=== PATIENT | female | born 1965 | race Caucasian/White ===

== ENCOUNTER 2020-11-17 10:02 | Outpatient (CLI) | payer SELFPAY ==
--- NOTE | 2020-11-17 10:17 | USCV_ITS ---
Aaron Pascal Age: 54 Gender: F : 1965 Exam Date: 11/17/2020 10:10 Ordering Phys: Ayaz Hernandez MD Technologist: Fly Smith Exam Location: [facility] [place]_ Indication: hypertension Aortic Velocity @ SMA (cm/s) 189 RIGHT KIDNEY LEFT KIDNEY Velocity (cm/s) Velocity (cm/s) Sys/Magana Sys/Magana Resistive Index Resistive Index / Proximal Renal Artery 116.4 / 32.0 0.73 / Mid Renal Artery 108.1 / 34.0 0.69 / Distal Renal Artery 111.2 / 38.7 0.65 / Hilar 108.7 / 32.5 0.70 / Upper Pole 45.2 / 14.4 0.68 / Mid Pole 42.3 / 9.9 0.77 / Lower Pole 30.6 / 9.5 0.69 Renal Aortic Ratio 0.62 Accleration Index (cm/sec2) Hilar 1563.0 0 Upper Pole 789.00 Mid Pole 825.00 Lower Pole 618.00 Kidney Length (mm) 109.6 FINDINGS Right kidney cannot be measured because not well visualized as described. Left kidney 10.9 x 5.0 x 4.2cm Left renal cortex 1.7cm CONCLUSIONS Right kidney not well seen and doppler could not be performed Normal color flow Doppler, peak systolic velocities, Renal/Aortic peak systolic velocity ratio and resistive indices noted in the Left main, segmental and interlobar renal arteries. Jose Arellano MD (Electronically Signed) Final Date: 17 November 2020 16:42 Amended: 18 November 2020 10:22 C
== END 2020-11-17 10:03 | disposition home or self-care (01) ==
LOC: RAD 10:09
PROVIDERS: Visit Provider Internal Medicine
DX: I70.1 Atherosclerosis of renal artery (principal); I10 Essential (primary) hypertension
CPT/HCPCS: 93975

== ENCOUNTER → 2021-04-26 10:51 | Outpatient (BNVA) | payer SELFPAY | PROVIDERS: PCP Physician Assistant Medical; Referring Provider Radiology Diagnostic Radiology; Visit Provider Orthopaedic Surgery | DX: M25.551 Pain in right hip (principal) | CPT/HCPCS: 73502 ==

== ENCOUNTER → 2021-09-01 13:46 | Outpatient (BNVA) | payer SELFPAY | PROVIDERS: PCP Physician Assistant Medical; Visit Provider Obstetrics & Gynecology | DX: N39.3 Stress incontinence (female) (male) (principal); N81.10 Cystocele, unspecified; N81.6 Rectocele | CPT/HCPCS: 87635 ==

== ENCOUNTER 2021-09-06 09:13 | Observation (INO) | payer MEDICAID, SELFPAY ==
[2021-09-05 13:33] VITALS: BMI 33.7
[2021-09-06] VITALS (17 sets, daily range): BP systolic 107–138; BP diastolic 66–81; PULSE 57–78; RESP 13–22; TEMP 36.4–36.8; O2SAT 86–100
--- NOTE | 2021-09-06 06:30 | PC.NURSE ---
Patient unable to void for UA. Order changed to cath as source for OR. Nurse notified.
[2021-09-06] MEDS: gabapentin 300 mg Capsule PO (06:42)
[2021-09-06] MEDS: ketorolac 30 mg/mL INJ IVP ×3 (06:42→20:46)
[2021-09-06] MEDS: phenazopyridine 100 mg Tablet 200 MG PO (06:42)
[2021-09-06] MEDS: sodium chloride 0.9% 1,000 ML 30 ML IV (06:43)
[2021-09-06] MEDS: CELEcoxib 100 mg Capsule 400 MG PO (06:43)
[2021-09-06] MEDS: acetaminophen 1,000 MG/100 ML PIGGYBACK 400 MG IV (07:00)
--- NOTE | 2021-09-06 07:01 | P.ANESASSM_ITS ---
Pre-Anesthetic Assessment Pre-Anesthetic Assessment: Height/Weight: Height 1.68 m Weight 94.801 kg Temp Pulse Resp BP Pulse Ox 98.2 F 57 L 18 138/77 97 09/06/21 06:26 09/06/21 06:26 09/06/21 06:26 09/06/21 06:26 09/06/21 06:26 Preop Diagnosis: cystocele, rectocele, loss of perineal body, stress incontinence Proposed Procedure: Operation Date: 09/06/21 07:00 Proposed Procedures p Anterior Repair [id number] N81.10 N81.6 N39.3(Not Applicable) - Niocle Hays MD s Posterior Repair(Not Applicable) - Nicole Hays MD s Sling(Not Applicable) - Nicole Hays MD Was Beta Fang taken within 24 hours: Yes Was Clonidine taken within 24 hours: N/A Last intake: Intake Last Liquid Date 09/05/21 Last Liquid Time 21:30 Last Solid Date 09/05/21 Last Solid Time 21:30 Social: Social History: No alcohol and No tobacco Exam: Pre-Anes Outpt Exam: alert, oriented x 3, clear to auscultation bilaterally and regular rate & rhythm Airway: Submandibular: WNL Cervical ROM: WNL MP: 2 Dentition: Full CV/HEM: CV/HEM: Arrythmia Metabolic: Metabolic: Hyperlipidemia and Morbid obesity Anesthetic Plan: ASA status: 3 Anesthesia: General Risk of > 500 ml blood loss (7ml/kg in children): No Meds/Allergies 2 Current Medications: Current Medications Generic Name Dose Route Start Last Admin Trade Name Freq PRN Reason Stop Dose Admin Sodium Chloride 1,000 mls @ 30 ml s/hr 09/06/21 06:30 09/06/21 06:43 Sodium Chloride 0.9% IV 09/07/21 06:29 30 mls/hr .Q24H XIN Administration PFSH Anesthesia PFSH: Medical History Borderline diabetic Carpal tunnel syndrome, bilateral Chronic kidney disease Depression Hypercholesteremia Hypertension Surgical History History of History of total hysterectomy Hx of lumbosacral spine surgery Family History Mother Heart disease Grandmother Breast cancer Paternal Grandfather Cancer Paternal-Prostate Sister Diabetes Family/Other Diabetes Paternal uncle Hyperlipidemia Paternal Uncle Denies family history of CAD (coronary artery disease) Clotting disorder Chronic kidney disease (CKD) Bleeding disorder Hypertension Stroke Social History Smoking and tobacco status: never smoked Alcohol intake: never Data Anesthesia Cardiac Studies: No Data to Display
--- NOTE | 2021-09-06 07:06 | W.PM.OPSUD ---
Surgery/Procedure H&P Update DATE OF PROCEDURE: September 06, 2021 DATE H&P PERFORMED: 09/01/21 H&P UPDATE INFORMATION: I have reviewed H&P completed within last 30 days, I have examined patient prior to procedure and No changes to prior documentation PREOP DIAGNOSIS: cystocele, rectocele, loss of perineal body, stress incontinence PLANNED PROCEDURE: Operation Date: 09/06/21 07:00 Proposed Procedures p Anterior Repair [id number] N81.10 N81.6 N39.3(Not Applicable) - Nicole Hays MD s Posterior Repair(Not Applicable) - Nicole Hays MD s Sling(Not Applicable) - Nicole Hays MD
[2021-09-06 07:22] LABS: Basophils # 0.1 10^3/uL (0.0-0.1); Basophils % 1.7 %; Eosinophils # 0.4 10^3/uL (0.0-0.8); Hematocrit 30.8 % (37.0-47.0); Hemoglobin 9.7 g/dL (11.5-15.3); Lymphocytes # 2.3 10^3/uL (0.8-4.8); Lymphocytes % 36.8 %; Mean Corpuscular HGB Conc 31.5 g/dL (30.0-36.0); Mean Corpuscular Hemoglobin 29.1 pg (28.0-34.0); Mean Corpuscular Volume 92.5 fl (81-99); Mean Platelet Volume 10.1 fL (7.4-10.4); Monocytes # 0.8 10^3/uL (0.2-0.9); Neutrophils # 2.73 10^3/uL (1.8-7.7); Neutrophils % 43.3 %; Nucleated Red Blood Cells % 0 %; Platelet Count 461 10^3/cmm (130-400); Red Blood Count 3.33 10^6/uL (4.1-5.3); Red Cell Distribution Width 13.2 % (12.1-15.1); White Blood Count 6.3 10^3/uL (4.0-10.0)
[2021-09-06 07:36] LABS: Anion Gap 14.3 (5-19); Blood Urea Nitrogen 32 mg/dL (6-20); Calcium 9.2 mg/dL (8.5-10.5); Carbon Dioxide 30 mmol/L (22-29); Chloride 101 mmol/L (98-107); Glomerular Filtration Rate 51.4 mL/min (90-130); Glucose 104 mg/dL (65-115); Osmolality Calculated 299 mOsm/kg (285-295); Potassium 4.3 mmol/L (3.5-5.1); Sodium 141 mmol/L (136-145)
[2021-09-06] MEDS: vasopressin 20 unit/mL INJ 8 UNIT INJECTION (07:59)
--- NOTE | 2021-09-06 08:43 | P.OP_ITS ---
Operative Report Date of procedure: September 06, 2021 Pre-op Diagnosis: cystocele, rectocele, loss of perineal body, stress incontinence Post-op diagnosis: same Post-op Findings: Evidence of prior anterior surgery. Otherwise normal Procedure Done: mid urethral sling placement, perineorrhaphy Implants: mid urethral sling Specimens removed/disposition: none Pathology: none sent Surgeon: Nicole Hays Anesthesia: General Estimated blood loss (mL): 150 IV fluids (mL): 1,100 Urine output (mL): 400 Complications: none, but evidence of prior bladder surgery. Anterior repair aborted due to possible presence of graft. Mucosa reapproximated Findings: grade 2 cystocele, urinary incontinence, loose perineal body Disposition: floor Brief History: The patient presented with complaints of stress incontinence and vaginal pressure. Procedure: The patient was taken to the operating room where general anesthesia was administered and found to be adequate. She was prepped and draped in the normal sterile fashion in the dorsal lithotomy position in Azael stirrups. A treadwell catheter was placed. A weighted speculum was placed into the vagina and an Allis clamp was placed approximately 2 cm below the urethra and another placed approximately 3 cm distal from that. An incision was made between the 2. The tissue was sharply and bluntly dissected along the pubic ramus bilaterally. The sling was placed on the left first by going through the incision and attaching the sling to the obturator foramen membrane . The right side was p erformed in a similar fashion, placing the applicator through the incision and attaching to the obturator foramen membrane. The Treadwell catheter was removed and the cystoscope advanced into the bladder. Pyridium had previously been given and bilateral spill of blue fluid was noted from both ureteral orifices. There was no mesh noted to be in the bladder. 300 ml of sterile saline was placed into the bladder. The sling was tightened until there was no leakage with valsalva. The tag of suture was trimmed. The incision was repaired with 2-0 Vicryl in a running locked fashion. The vaginal cuff was identified and an allis clamp was placed in the midline of the vaginal mucosa, approximately 2 cm anterior to the cuff. A second allis clamp was placed in the midline of the vaginal mucosa, connected to the previous anterior incision. The vaginal mucosa was clamped laterally and I attempted to dissect the cystocle off of the vesicovaginal fascia. The bladder was densely adhered and firm to the touch. The patient denied any previous bladder surgeries, however, the bladder had the appearance of a previous graft or at the very least previous surgery. I was unable to perform the dissection. The incision was closed with 3-0 vicryl, carefully avoiding the bladder with the stitches. Attention was then turned to the perineorrhphy. Allis clamps were placed on the posterior fourchette. A 3 cm wedge of the fourchette was removed. This was repaired in the usual fashion with O-vicryl. Vaginal packing was placed. The patient tolerated the procedure well. Sponge, lap and needle counts were correct times three. She was taken to the recovery room in stable condition.
[2021-09-06] MEDS: acetaminophen 325 mg Tablet 650 MG PO (13:11)
--- NOTE | 2021-09-06 14:18 | ANE.PACU2 ---
Inpatient post-anesthesia follow up: Airway intact: Yes Vital signs: Temperature 97.8 F Pulse Rate 63 Respiratory Rate 17 Blood Pressure 116/68 Pulse Oximetry 98 Oxygen Delivery Me thod Nasal Cannula Oxygen Flow Rate 1 Fraction of Inspir ed Oxygen Hydration adequate: Yes Nausea and vomiting: No Pain level: 3 Mental status: Baseline
--- NOTE | 2021-09-06 16:45 | PC.NURSE ---
This comic book writer assisted pt from bed to chair. Pt tolerated well, but had some decreased ROM in her right hip/leg. Chucks pad that was under pt since surgery had a dinner plate size saturated area of blood on it. Pt also reported having some shortness of breath and every time she takes a deep breath she coughs. Pt reports shes not able to take very deeps breaths because of this. Pt O2 saturation is in the low 90s on room air. When pt was resting she dropped down into the 80s, so pt was placed on 2L nasal cannula and responded well.
--- NOTE | 2021-09-06 17:03 | PC.NURSE ---
Call to Dr. Hays to report pt bleeding and low saturations with shortness of breath. Reported that pt had a dinner plate size area on the chucks pad that was saturated with blood. Dr. Hays responded, The vaginal packing has a water based lubricant on so it dilutes the blood and makes it appear that there is more bleeding than there actually is, and that is probably what happened. Reported that pt has had low O2 sats at 90-92% on room air and that pt is complaining of shortness of breath and pain in her chest when she takes deep breaths. Also deep breaths make her cough. Received orders to have respiratory come and assess the pt.
[2021-09-06] MEDS: HYDROcodone-acetaminophen 5-325 mg Tablet PO (18:32)
[2021-09-06] MEDS: dextrose 5%-lactated ringers 1,000 ML 125 ML IV (18:33)
[2021-09-06] MEDS: HYDROmorphone 1 mg/mL INJ 1 mL 1.5 MG IVP (19:33)
[2021-09-06] MEDS: metoprolol succinate ER (24 HR) 25 mg Tablet PO (20:46)
[2021-09-07] MEDS: HYDROcodone-acetaminophen 5-325 mg Tablet PO ×2 (00:30→06:48)
[2021-09-07 01:58] VITALS: RESP 16
[2021-09-07] MEDS: HYDROmorphone 1 mg/mL INJ 1 mL 1.5 MG IVP (01:58)
[2021-09-07 03:29] VITALS: BP 105/64; PULSE 66; RESP 14; O2SAT 97
[2021-09-07 05:40] LABS: Hemoglobin 8.1 g/dL (11.5-15.3); Mean Corpuscular HGB Conc 33.8 g/dL (30.0-36.0); Mean Corpuscular Hemoglobin 29.6 pg (28.0-34.0); Mean Corpuscular Volume 87.6 fl (81-99); Mean Platelet Volume 10.3 fL (7.4-10.4); Platelet Count 408 10^3/cmm (130-400); Red Blood Count 2.74 10^6/uL (4.1-5.3); White Blood Count 9.7 10^3/uL (4.0-10.0)
[2021-09-07 07:00] VITALS: BP 107/68; PULSE 78; RESP 16; TEMP 36.9; O2SAT 95
--- NOTE | 2021-09-07 08:39 | PM.DCS ---
Discharge Providers Date of Admission: 09/06/21 09:13 Date of Discharge: September 07, 2021 Attending Provider at Admission: Nicole Hays MD Attending Provider at Discharge: Nicole Hays MD Primary Care Provider: Patel Gerardo Diagnoses at Discharge Discharge Diagnosis (1) Postoperative state: Status: Acute Reason for Visit Reason for Visit: Cystocele, stress incontinence Hospital Course Hospital Course The patient was admitted for surgery. She did well postoperatively and was ready for discharge on day #2. Physical Exam Narrative: EXAM NARRATIVE: The patient is doing well this morning. no concerns. packing has been removed as well as catheter Const: COMMON NORMALS: no acute distress, patient oriented x3, no limitations, healthy appearing, alert and well nourished GENERAL APPEARANCE: cooperative, comfortable, well kempt and well developed ORIENTATION/CONSCIOUSNESS: Yes awake, Yes oriented to person, Yes oriented to place and Yes oriented to time Resp: COMMON NORMALS: normal respiratory effort EFFORT & INSPECTION: Yes able to speak in complete sentences GI: COMMON NORMALS: Soft to palpation and non-tender PALPATION: Yes Soft to palpation : COMMON NORMALS: Yes normal external appearance and Yes normal appearance of the vagina Extremity: COMMON NORMALS: no calf tenderness Neuro: COMMON NORMALS: patient oriented x3 SENSORIUM/ORIENTATION: Yes alert, Yes oriented to person, Yes oriented to place and Yes oriented to time Psych: APPEARANCE: Yes well kempt Urinary Catheter Management^: Montero: Cath Placed During This Visit: yes Reason for Continuing Indwelling Catheter: Perioperative Use in Selected Surgeries Urinary Catheter Date of Insertion: 09/06/21 Urinary Catheter Time of Insertion: 07:35 Discharge Data Data Completed and Pending: Pending at discharge Category Date Time Status ES surgery / GI i mages Routine Exams 09/06/21 06:36 Taken Urine Culture Rou rylan Lab 09/06/21 07:37 Received Labs from last 24 hours 09/07/21 05:05 WBC 9.7 RBC 2.74 L Hgb 8.1 L Hct 24.0 L MCV 87.6 D MCH 29.6 MCHC 33.8 D RDW 13.0 Plt Count 408 H MPV 10.3 Vitals: Last Vital Signs Temp 98.2 F 09/06/21 16:30 Pulse 66 09/07/21 03:29 Resp 14 09/07/21 03:29 BP 105/64 09/07/21 03:29 Pulse Ox 97 09/07/21 03:29 Discharge Plan Discharge Patient Disposition: Home Condition: Stable Prescriptions: New tramadol 50 mg tablet 50 mg PO Q6H Qty: 30 RF: 0 Continued paroxetine HCl [Paxil] 40 mg tablet 40 mg PO DAILY RF: 0 aspirin 325 mg tablet 325 mg PO DAILY RF: 0 metoprolol succinate 25 mg tablet extended release 24 hr 25 mg PO BID RF: 0 lisinopril 40 mg tablet 40 mg PO DAILY RF: 0 hydrochlorothiazide 25 mg tablet 25 mg PO DAILY RF: 0 cyanocobalamin (vitamin B-12) 1,000 mcg capsule 1,000 mcg PO DAILY RF: 0 coenzyme Q10 [CoQ-10] 100 mg capsule 200 mg PO DAILY RF: 0 tramadol 50 mg tablet 50 mg PO DAILY RF: 0 diclofenac sodium 50 mg tablet,delayed release (DR/EC) 50 mg PO BID RF: 0 tizanidine 4 mg capsule 4 mg PO BID PRN (Reason: Spasms) RF: 0 atorvastatin 80 mg tablet 80 mg PO DAILY RF: 0 magnesium chloride [Mag 64] 64 mg Tablet,Delayed Release (Dr/Ec) 64 mg PO BID RF: 0 pioglitazone 30 mg tablet 30 mg PO DAILY RF: 0 Discharge Orders: Discharge Order (Routine); Ordered 09/07/21 Ordered By: Nicole Hays Referrals: Nicole Hays MD [Physician] - 6 Weeks (YOU HAVE A 1 WEEK FOLLOW UP WITH DR. HAYS ON 09/12/21 AT 0845. YOU WILL ALSO HAVE A 6 WEEK FOLLOW UP WITH DR. HAYS ON 10/17/21 AT 0815.) Patient Instructions: Tramadol (By mouth) (Ultram, Ultram ER, [place], Theratramadol-60, Qdolo), Urinary Bladder Suspension (DC), Urinary Incontinence (GEN), OB Discharge Report, OB Food/Drug Interaction Guide, Opioid Safety Activity Restrictions/Additional Instructions: READ AND FOLLOW ALL OF YOUR HOME CARE INSTRUCTIONS. PLEASE CONTACT THE PHYSICIAN'S OFFICE OR THE OB DEPARTMENT WITH ANY QUESTIONS OR CONCERNS. Discharge Attestations Time Spent in Discharge Care*: less than 30 min Quality Metrics Clinical Quality Measures During this hospital stay, did patient experience: None Coding Level of Care Code Acute Chg FW DC note Diagnoses Postoperative state Z98.890
[2021-09-07] MEDS: lisinopril 20 mg Tablet 40 MG PO (09:25)
[2021-09-07] MEDS: docusate sodium 100 mg Capsule PO (09:25)
[2021-09-07] MEDS: ibuprofen 800 mg tablet PO (09:25)
[2021-09-07] MEDS: metoprolol succinate ER (24 HR) 25 mg Tablet PO (09:26)
[2021-09-07] MEDS: PARoxetine 20 mg Tablet 40 MG PO (09:26)
[2021-09-07] MEDS: pioglitazone 30 mg Tablet PO (09:27)
[2021-09-07 12:00] VITALS: BP 127/79; PULSE 63; RESP 18; TEMP 36.9; O2SAT 96
[2021-09-07 12:15] VITALS: BP 127/79; PULSE 63; RESP 18; TEMP 36.9; O2SAT 96
== END 2021-09-07 12:15 | disposition home or self-care (01) ==
LOC: OBGYN 12:51
PROVIDERS: Admitting Provider Obstetrics & Gynecology; PCP Physician Assistant Medical; Visit Provider Obstetrics & Gynecology
PROC: (CPT 57288; 2021-09-06 07:00)
PROC: 0HQ9XZZ Repair Perineum Skin, External Approach (ICD-10-PCS; CPT 12002; 2021-09-06 07:00)
DX: N39.3 Stress incontinence (female) (male) (principal); N81.10 Cystocele, unspecified; N81.6 Rectocele; E78.5 Hyperlipidemia, unspecified; E66.01 Morbid (severe) obesity due to excess calories; Z68.33 Body mass index [BMI] 33.0-33.9, adult; I12.9 Hypertensive chronic kidney disease with stage 1 through stage 4 chronic kidney disease, or unspecified chronic kidney disease; N18.9 Chronic kidney disease, unspecified; F32.9 Major depressive disorder, single episode, unspecified; E78.00 Pure hypercholesterolemia, unspecified; Z82.49 Family history of ischemic heart disease and other diseases of the circulatory system; Z83.3 Family history of diabetes mellitus
CPT/HCPCS: 12002; 57288; 36415; 51798; 80048; 85025; 85027; 87086; 94664; 96365; 96374; C1713; G0378; J0690; J1100; J1170; J1885; J1940; J2250; J2405; J2704; J2710; J3010; J3490; J7030

== ENCOUNTER 2021-11-04 13:55 | Outpatient (CLI) | payer SELFPAY ==
[2021-11-04 14:56] LABS: Basophils # 0.1 10^3/uL (0.0-0.1); Basophils % 1.5 %; Eosinophils # 0.3 10^3/uL (0.0-0.8); Eosinophils % 5.4 %; Hematocrit 31.8 % (37.0-47.0); Hemoglobin 10.2 g/dL (11.5-15.3); Lymphocytes # 2.1 10^3/uL (0.8-4.8); Lymphocytes % 35.3 %; Mean Corpuscular HGB Conc 32.1 g/dL (30.0-36.0); Mean Corpuscular Hemoglobin 28.9 pg (28.0-34.0); Mean Corpuscular Volume 90.1 fl (81-99); Mean Platelet Volume 10.1 fL (7.4-10.4); Monocytes # 0.6 10^3/uL (0.2-0.9); Monocytes % 9.5 %; Neutrophils # 2.84 10^3/uL (1.8-7.7); Neutrophils % 48.1 %; Nucleated Red Blood Cells % 0 %; Platelet Count 535 10^3/cmm (130-400); Red Blood Count 3.53 10^6/uL (4.1-5.3); Red Cell Distribution Width 12.8 % (12.1-15.1); White Blood Count 5.9 10^3/uL (4.0-10.0)
[2021-11-04 15:25] LABS: Albumin Level 4.4 g/dL (3.5-5.2); Anion Gap 18.8 (5-19); Blood Urea Nitrogen 34 mg/dL (6-20); Carbon Dioxide 24 mmol/L (22-29); Chloride 96 mmol/L (98-107); Glomerular Filtration Rate 46.5 mL/min (90-130); Glucose 76 mg/dL (65-115); Phosphorus 3.6 mg/dL (2.5-4.5); Potassium 4.8 mmol/L (3.5-5.1); Sodium 134 mmol/L (136-145)
[2021-11-04 15:26] LABS: Calcium 9.2 mg/dL (8.5-10.5)
[2021-11-04 15:32] LABS: Parathyroid Hormone 32.4 pg/mL (15-65)
[2021-11-04 15:41] LABS: 25 Hydroxy Vitamin D 29 ng/mL (30-100)
== END 2021-11-04 13:56 | disposition home or self-care (01) ==
PROVIDERS: PCP Physician Assistant Medical; Visit Provider Internal Medicine Nephrology
DX: I12.9 Hypertensive chronic kidney disease with stage 1 through stage 4 chronic kidney disease, or unspecified chronic kidney disease (principal); N18.31 Chronic kidney disease, stage 3a; I70.1 Atherosclerosis of renal artery; N25.0 Renal osteodystrophy
CPT/HCPCS: 80069; 82306; 82310; 83970; 85025

== ENCOUNTER 2021-11-07 13:29 | Outpatient (CLI) | payer SELFPAY ==
[2021-11-07 13:59] LABS: Add Urine Microscopic? NO; Charge for UA Resulting for Rev
[2021-11-07 14:12] LABS: Bilirubin Urine Neg (Negative); Blood Urine Neg (Negative); Glucose Urine UA Trace (Normal); Ketones Urine Negative (Negative); Leukocyte Esterase Urine Negative (Negative); Nitrate Urine Negative (Negative); Protein Urine Neg (Negative); Specific Gravity, Urine 1.005 (1.005-1.030); Urine Appearance Clear (CLEAR); Urine Color Straw (Yellow); Urobilinogen Urine Norm (Negative); pH Urine 5 (5-7)
[2021-11-07 14:28] LABS: Creatinine Urine, Random 47 mg/dL (28-217)
== END 2021-11-07 13:30 | disposition home or self-care (01) ==
LOC: LAB 13:31
PROVIDERS: PCP Physician Assistant Medical; Visit Provider Nurse Practitioner
DX: I70.1 Atherosclerosis of renal artery (principal); N18.31 Chronic kidney disease, stage 3a; I10 Essential (primary) hypertension
CPT/HCPCS: 81003; 82575

== ENCOUNTER 2021-12-01 12:19 | Outpatient (CLI) | payer OTHER, SELFPAY ==
[2021-12-01 13:56] LABS: Ferritin 103 ng/mL (15-150); Iron 65 ug/dL (37-145); Percent Saturation 23.8 % (20-50); Total Iron Binding Capacity 273 mcg/dl; Unsaturated Iron Binding 208 ug/dL (112-347)
[2021-12-03 04:03] LABS: PROTEIN, TOTAL 7.5 g/dL (6.1-8.1)
[2021-12-05 09:12] LABS: ALBUMIN 4.1 g/dL (3.8-4.8); ALPHA 1 GLOBULIN 0.3 g/dL (0.2-0.3); ALPHA 2 GLOBULIN 0.8 g/dL (0.5-0.9); BETA 1 GLOBULIN 0.4 g/dL (0.4-0.6); BETA 2 GLOBULIN 0.3 g/dL (0.2-0.5); GAMMA GLOBULIN 1.6 g/dL (0.8-1.7)
== END 2021-12-01 12:20 | disposition home or self-care (01) ==
LOC: LAB 12:27
PROVIDERS: PCP Physician Assistant Medical; Visit Provider Nurse Practitioner Family
DX: D63.1 Anemia in chronic kidney disease (principal)
CPT/HCPCS: 36415; 82728; 83540; 83550; 84155; 84165